=== PATIENT | female | born 1990 | race Caucasian/White ===

== ENCOUNTER 2023-12-06 05:09 | Emergency (ER) | payer OTHER, SELFPAY ==
[2023-12-06 05:27] VITALS: BP 117/75
[2023-12-06 05:46] VITALS: BMI 19.4
[2023-12-06 06:02] LABS: COVID-19 Antigen Negative (Negative)
--- NOTE | 2023-12-06 07:11 | ED.GENMED ---
History of Present Illness
General
Chief Complaint: Cold/Flu/URI Symptoms
Source: patient
Exam Limitations: none
Time Seen by Provider: 12/06/23 06:50
Nursing documentation reviewed up to this point in time: agreed with
History of Present Illness
History of Present Illness:
33 yo transgender female presents with sore throat and swollen glands for past 2 days. States glands are much less swollen today and has 'some' discomfort with swallowing now. Denies fever/chills. Denies n/v/d/c.
Past History
Past History
ED Past Medical History: Asthma, Other (chronic 'stomach issues') and Other (transgender female to male)
Social History
Tobacco: Smoker
Alcohol: None
Living: with family (lives with sister)
Employment: Employed (works 'on feet all day' in a kitchen)
Family History
Family History: Other (Family history of esophageal cancer, skin cancer, hypertension, hypothyroidism, Carlos Creutzfelt, hyperlipidemia)
Review of Systems
Review of Systems
Allergies reviewed?: Yes
All Other Systems: ROS reviewed and negative except as documented in HPI and ROS
Constitutional: Denies fever or chills
EENT: Reports sore throat; Denies runny nose
Respiratory: Denies cough or trouble breathing
Cardiac: Denies chest pain
ABD/GI: Denies abdominal pain, nausea, vomiting, diarrhea or anorexia
: Denies dysuria or difficulty voiding
Musculoskeletal: Reports no symptoms
Skin: Reports no symptoms
Neurological: Reports no symptoms
Phy Exam
Physical Exam
Physical Exam:
GENERAL: No acute distress. A&Ox3.
CONSTITUTIONAL: Afebrile.
EYES: clear, conjunctivae normal
Neck: Supple, palpable small, non tender lymph nodes
ENMT: moist mucus membranes, Pharynx nl
RESPIRATORY: Regular respirations, nonlabored, lungs clear.
CARDIOVASCULAR: Regular rate and rhythm, no murmurs, no rubs.
GI: Soft, nontender, normal BS
MUSCULOSKELETAL: Moves with ease. Well perfused.
SKIN: Warm, dry, pink
PSYCH: Normal mood and affect. Well kept, interactive and appropriate
NEUROLOGIC: Awake, alert and oriented. No focal neurological deficits
Course
Orders/Labs/Results
Orders:
Orders
12/06/23 05:32
COVID-19 Antigen Urgent
Source: Nasal Swab
12/06/23 05:44
Influenza A+B Rapid Molecular Urgent
SUMMER Source: Nasal Swab
Specimen Description:
Date Specimen was Collected: 12/06/23
Time Specimen was Collected: 05:37
Rapid Strep Group A Urgent
SUMMER Source: Throat/Pharynx
Specimen Description:
Date Specimen was Collected: 12/06/23
Time Specimen was Collected: 05:37
Vital Signs
Initial and Last Documented VS:
Initial Vital Signs
Temp Pulse Resp BP Pulse Ox
98.1 F 64 15 117/75 98
12/06/23 05:27 12/06/23 05:27 12/06/23 05:27 12/06/23 05:27 12/06/23 05:27
Last Documented Vital Signs
Temp Pulse Resp BP Pulse Ox
98.1 F 67 14 116/62 99
12/06/23 05:27 12/06/23 07:36 12/06/23 07:36 12/06/23 07:36 12/06/23 07:36
MDM/Problems Addressed
Differential Diagnosis Includes:
bacterial vs viral pharyngitis, Covid
MDM/Problems Addressed:
33 yo transgender female presents with sore throat and swollen glands for past 2 days. States glands are much less swollen today and has 'some' discomfort with swallowing now. Denies fever/chills. Denies n/v/d/c.
Afebrile, NAD
Pharynx normal appearing. No significant lymphadenopathy
Pt is not ill appearing
Covid neg
Flu neg
Rapid strep neg
Pt reassured, most likely self limited viral illness
*Critical Care Note
Total Time (30-74mins, 75-104mins- exclusive of procedures): Not Applicable
ED Attending Note
-
Portions of this chart may have been created with voice recognition software.� Occasional wrong word or��sound alike� substitutions may have occurred due to the inherent limitations of voice recognition software.
Discharge Plan
Departure
Patient Disposition: Home (Routine Discharge)
Date of Disposition: 12/06/23
Time of Disposition: 07:17
Patient with high blood pressure during this ER visit?: No
Condition: Good
Discharge Problem:
Pharyngitis
Instructions: Sore Throat - Adult
Prescriptions:
No Action
omeprazole 20 MG capsule,delayed release(DR/EC)
20 mg PO DAILY Qty: 20 0RF
Referrals:
Benjamin Winters [Other] - As needed
PRIVATE,PHYSICIAN [Family Provider] -
Stand Alone Forms: Return to Work
Activity Restrictions/Additional Instructions:
As we discussed you most likely have a viral sore throat.
Tylenol or Ibuprofen as needed for pain, fever.
Throat lozenges to help soothe the throat
Interventions
Interventions:
*Risk Screen - Suicide Last Done: 12/06/23 07:03
*General Assessment Last Done: 12/06/23 05:27
*Neglect/Abuse Screening Last Done: 12/06/23 05:27
ED- Fall Risk Assessment Last Done: 12/06/23 05:27
*ED COVID-19 Vaccine History Last Done: 12/06/23 05:27
*Nursing Disposition Last Done: 12/06/23 07:38
ED- Pulmonary Assessment Last Done: 12/06/23 05:46
Discharge Date and Time
Discharge Date/Time: 12/06/23 07:39
Print Language: [id number]
[2023-12-06 07:36] VITALS: BP 116/62
== END 2023-12-06 07:39 | disposition home or self-care (01) ==
LOC: EMR 05:09
PROVIDERS: Student in an Organized Health Care Education/Training Program; EMERGENCY PHYSICIAN Student in an Organized Health Care Education/Training Program
DX: J02.9 Acute pharyngitis, unspecified (principal); Z11.52 Encounter for screening for COVID-19; F17.200 Nicotine dependence, unspecified, uncomplicated
CPT/HCPCS: 99283; 87070; 87502; 87811; 87880